=== PATIENT | female | born 1995 | race Caucasian/White ===

== ENCOUNTER 2021-09-25 00:20 | Emergency (ER) | payer OTHER ==
[~2021-09-25] VITALS: Wt 87.3 kg
[2021-09-25] MEDS ORDERED: AMOXICILLIN 50500 MG PO (00:44)
[2021-09-25 00:54] VITALS: BP 118/79
== END 2021-09-25 00:55 | disposition home or self-care (01) ==
LOC: ED 00:20
DX: J02.0 Streptococcal pharyngitis (principal); Z28.310 Unvaccinated for COVID-19